=== PATIENT | female | born 1950 | race Caucasian/White ===

== ENCOUNTER 2016-06-25 04:06 | Emergency (ER) | payer MEDICARE, BC, OTHER ==
--- NOTE | 2016-06-27 07:05 | ER ---
ADMIT: 06/25/2016 RM/LOC: ER [facility] MR#: [id number] [address] [address] [place] [id number] [place] [address] Emergency Room Report SEX: F AGE: 66 : 1950 DATE: 06/25/2016 The patient is a 66-year-old female with a past medical history of hypothyroidism, gallstone waiting for the elective cholecystectomy, came to the ER with chief complaint of right upper quadrants and epigastric pain which is very similar in quality and quantity to the previous biliary colic pains. The patient at first had nausea which was resolved. The patient did have any fever or diarrhea or vomiting. The pain is sharp and intermittent. The pain does not increase with palpation of the right upper quadrant. PHYSICAL EXAMINATION: GENERAL: In the ER, the patient had stable vitals, was in moderate to severe distress. HEAD AND NECK: Exam was noncontributory. CHEST: Clear bilaterally. HEART: Normal S1 and S2. ABDOMEN: The patient has no abdominal tenderness or rebound or guarding. No CVA tenderness. The rest of the physical exam is noncontributory. Considering the recent ultrasound which per patient showed multiple gallstones and the appointment for elective cholecystectomy on by Dr. Sykes, the pain was controlled, there are no signs or symptoms at the moment which strongly suggest cholecystitis. The patient's abdomen was re-examined and there was no tenderness, pain was controlled substantially. The patient was in no distress. The patient was discharged to home. Return precautions, and follow up with Dr. Sykes for elective surgery per their discretion. Manuel Bro MD/ evelyn JOB #: [id number] CC: Manuel Bro MD, Attending Physician Silvio Maldonado PA-C, Family Physician
== END 2016-06-25 05:30 | disposition home or self-care (01) ==
LOC: ER 04:06
DX: K80.50 Calculus of bile duct without cholangitis or cholecystitis without obstruction (principal); E03.9 Hypothyroidism, unspecified; Z98.890 Other specified postprocedural states

== ENCOUNTER 2016-06-30 08:53 | Day surgery (SDC) | payer MEDICARE, BC, OTHER ==
[~2016-06-30] VITALS: Ht 165.1 cm; Wt 74.0 kg
--- NOTE | 2016-07-01 09:33 | OR ---
ADMIT: 06/30/2016 RM/LOC: [facility] MR#: [id number] [address] [address] [place] [address] [place] [address] Operative/Delivery Room Report SEX: F AGE: 66 : 1950 SURGERY DATE: 06/30/2016 SURGEON: Ron Sykes MD PREOPERATIVE DIAGNOSIS: Cholelithiasis with cholecystitis. POSTOPERATIVE DIAGNOSIS: Cholelithiasis with cholecystitis. PROCEDURE: Laparoscopic cholecystectomy with fluoroscopic intraoperative cholangiogram. [employer]OR: MIGUEL Lai whose assistance was necessary for laparoscopic visualization, camera driving, and tissue retraction. ANESTHESIA: General endotracheal. ESTIMATED BLOOD LOSS: 10 mL. DESCRIPTION OF PROCEDURE: The patient was taken to the operating room and placed supine on the operating room table. General anesthesia was established. The abdomen was prepped and draped in the standard surgical fashion. A 5-mm supraumbilical incision was made in the skin. A 5-mm Optiview trocar was advanced into the peritoneal cavity. Carbon dioxide was used to insufflate the abdomen to 15 mmHg pressure. Laparoscope was advanced and showed intraperitoneal position with no damage to underlying structures. Next, an 11-mm subxiphoid port and 2 right lateral 5-mm ports were placed under visualization. The gallbladder was retracted cephalad. There were numerous adhesions to the gallbladder edge, which were taken down to Calot's triangle. The cystic artery was identified anteriorly, skeletonized, doubly clipped proximally, singly clipped distally, and divided. The cystic duct was then skeletonized and Calot triangle was dissected and the view of safety was obtained. The cystic duct was clipped on the gallbladder side and the cystic duct was opened with laparoscopic scissors. A cholangiogram catheter was advanced into the distal cystic duct and clamped. Intraoperative fluoroscopic cholangiogram was performed which showed good flow of contrast through the biliary tree into the duodenum without obstructive lesion or intraluminal defect. There was good flow back into the hepatic branches. The cholangiogram catheter was withdrawn. The distal cystic duct was doubly ADMIT: 06/30/2016 RM/LOC: [facility] MR#: [id number] [facility] [address] [place], [place] [address] [place] [address] [place] [address] Operative/Delivery Room Report SEX: F AGE: 66 : 1950 clipped and divided. The gallbladder was excised from the gallbladder fossa with Bovie cautery. It was placed in an EndoCatch bag and removed through the subxiphoid port site. The right upper quadrant was irrigated. There was no evidence of bleeding. No evidence of bile leak and the clips remained intact on the cystic duct and artery. The ports were removed under visualization without evidence of bleeding. The fascial margin at the subxiphoid port site was approximated with 0 Vicryl suture and the suture passer. The abdomen was allowed to deflate. Skin edges were approximated with 4-0 Monocryl in a subcuticular fashion and Dermabond. Local anesthetic was injected at the incisions. Sponge, needle, and instrument counts were correct at the end of the case. The patient tolerated the procedure well and transferred to the recovery area in stable condition. Ron Sykes MD/ evelyn JOB #: [id number] CC: Ron Sykes, Attending Physician Silvio Maldonado, Family Physician
== END 2016-06-30 15:15 | disposition home or self-care (01) ==
LOC: SSS 08:53
PROC: BF13YZZ Fluoroscopy of Gallbladder and Bile Ducts using Other Contrast (ICD-10-PCS; principal; 2016-06-30)
PROC: 0FT44ZZ Resection of Gallbladder, Percutaneous Endoscopic Approach (ICD-10-PCS; principal; 2016-06-30)
DX: K80.10 Calculus of gallbladder with chronic cholecystitis without obstruction (principal); E78.5 Hyperlipidemia, unspecified; E07.9 Disorder of thyroid, unspecified; M81.0 Age-related osteoporosis without current pathological fracture; Z90.49 Acquired absence of other specified parts of digestive tract; Z98.51 Tubal ligation status; Z79.899 Other long term (current) drug therapy